=== PATIENT | male | born 2005 | race Caucasian/White ===

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

== ENCOUNTER 2025-06-07 18:51 | Inpatient (IN) | payer OTHER, SELFPAY ==
[2025-06-07] VITALS (39 sets, daily range): BP systolic 109–152; BP diastolic 53–99
[2025-06-07 16:42] LABS: Hematocrit 40.9 % (39.0-52.0); Hemoglobin 14.5 g/dL (13.0-18.0); Mean Corp Hgb Conc. 35.5 g/dL (33.0-37.0); Mean Corpuscular Volume 85.6 fL (80.0-94.0); Nucleated Red Blood Cells % 0 % (-); Platelet Count 189 10^3/uL (130-400); Red Cell Dist. Width 11.9 % (11.5-14.5)
[2025-06-07 16:45] LABS: Glucose - Point of Care 100 mg/dl (70-99)
--- NOTE | 2025-06-07 17:03 | ED.GENMED ---
History of Present Illness
General
Chief Complaint: Headache
Source: patient
Exam Limitations: none
Time Seen by Provider: 06/07/25 16:42
History of Present Illness
History of Present Illness:
Patient felt slightly off earlier today but about 3:00 while at work developed diffuse headache. Not thunderclap but relatively sudden onset. Diffuse. Not retrobulbar. Associate with nausea. When the patient got here he developed some weakness
to the right arm and felt like he was somewhat confused. Last migraine was 2 years ago. Has had migraines since he was 8 years old. This felt different.
Past History
Past History
ED Past Medical History: Other (Migraines)
ED Past Surgical History: None
Social History
Alcohol: None
Drug: Marijuana
Personal: Single
Living: with family
Review of Systems
Review of Systems
All Other Systems: Not applicable
Constitutional: Denies fever or chills
Respiratory: Reports no symptoms
Cardiac: Reports no symptoms
Phy Exam
Physical Exam
Physical Exam:
GENERAL: Alert and oriented in no apparent distress
EYE: Orbits normal.
NECK: Supple, no carotid bruit
ENT: Pharynx without erythema
CARDIAC: Regular rate and rhythm without any obvious murmurs.
LUNGS: Clear breath sounds,normal
ABDOMEN: Soft, without focal tenderness or distention
NEUROLOGICAL: Alert and oriented , although at times cognitively slightly off. Cranial nerves II through XII intact. No drift. Holding the right hand in a semigrip position. Decreased windows security analyst to the right hand. However proximal muscles are intact.
Decreased strength of both lower extremity with straight leg raising however slightly symmetrical. Light touch intact except for some decreased light touch to the right arm.
SKIN: Warm and dry, no rash or lesion, no discoloration, skin intact.
MUSCULOSKELETAL: No edema,no deformity.Good color
PSYCH: Normal and appropriate interaction.
Course
Orders/Labs/Results
Orders:
Orders
06/07/25 16:30
CT HEAD STROKE ALERT W/o Cont Urgent
Reason For Exam: VIZCARRA/Disorientation/numbness
06/07/25 16:35
Complete Blood Count/With Diff Urgent
Comprehensive Metabolic Panel Urgent
06/07/25 16:47
CT HEAD/NECK ANG STROKE ALERT Urgent
Comment:
Reason For Exam: Headache/right arm weakness right arm paresthesia
06/07/25 16:59
CT Brain Perfusion Urgent
Comment:
Reason For Exam: vizcarra right sided weakness
06/07/25 17:42
Ondansetron Injectable [Zofran] 4 mg .ROUTE .STK-MED ONE
Ondansetron Injectable [Zofran] 4 mg IV NOW STA
06/07/25 17:44
Tenecteplase [Tnkase] 18 mg Syringe [Syringe Non-Pump] 0 ml IV NOW
Provider explained risk/benefits to patient &/or caregiver?: Yes
Blood pressure: 131/72
06/07/25 18:35
Admit/Transfer Patient As Directed
Co-Sign Provider:
Level of Care: Inpatient admission
Assign to:: ICU
Physician / Group: Odilon Drake
Diagnosis: CVA, migraine
Reason for Hospitalization: CVA, migraine
Expected length of stay greater than two midnights?: Yes
ELOS- Estimated Length of Stay in days: 3
I certify the patient meets the requirements for IP care: Yes
PRN Pain Medication Management As Directed
May give lesser potent ordered pain med per pt: Yes
preference::
Protocol:: Medication orders for pain may be administered in a
manner that supports deferring to patient preference
when the pt is:
- Requesting an ordered lesser potent pain medication.
Least to most potent pain medications are defined
as: acetaminophen < NSAID < tramadol < opioids
(morphine, oxycodone, hydromorphone).
- Requesting a lesser dose of the same medication IF
ORDERED.
- Requesting a less intrusive route of administration
if both routes are prescribed by the provider (PO <
IV).
06/07/25 18:36
Code Status As Directed
Resuscitation Status: Full Code
06/07/25 19:24
Acetaminophen [Tylenol] 650 mg PO Q4HPRN PRN
06/07/25 19:24
Electrocardiogram (*1) Routine
Reason for Study: TIA/Stroke
Case Management Consult Once
Case Management Consult: Discharge Planning
DIETARY IP CONSULT Routine
Reason for Consult: stroke/TIA
Kiosk Sales Representative Consult Routine
Consulting Provider: Lewis Mackay
Was physician already notified: Yes
NEUROLOGY CONSULT Urgent
Consulting Provider: Felix Meadows
Was physician already notified: Yes
Director Employment Urgent
Urinalysis Routine
Comment: If not done in the ED
MR Brain Without Contrast Routine
Comment: complete 24 hrs post tenecteplase administration
Reason For Exam: possible stroke, status post tenecteplase
Recent pill cam endoscopy?: No
Hemetest Stools As Directed
Comment: hemoccult all stools if patient received tenecteplase
NIH Stroke Scale As Directed
Directions: Other
Comment: NIH stroke Scale to be completed prior to thrombolytic administration, then every 1 hour for 2
hours, then every shift and with change in condition and/or mental status.
Neurological Checks As Directed
Frequency: Per unit guidelines
Additional Instructions:: after start of thrombolytic therapy:
q15min x 2 hrs, q30min x 6 hrs, q1h x 16 hrs, q4h x 24 hrs, then every shift and
with any changes.
Notify MD As Directed
Notify physician if: - Any deterioration, change in neurological status, development of severe headache,
nausea and vomiting, or with any signs of bleeding. (see guidelines for suspected
intracerebral hemorrhage).
- If intracranial hemorrhage is suspected or confirmed by imaging, anticipate need for
osmotic diuretic to maintain euvolemia.
Notify MD As Directed
Notify physician if: Glucose less than 70 or greater than 180.
Anticipate corrective insulin orders.
Notify MD As Directed
Notify physician if: unable to obtain MRI of head within 22-32 hours of tenecteplase administration
- contact Neurology for order for CT of head without contrast
Patient Education As Directed
Type: Stroke education packet
Comment: provide to patient and family
Pneumatic Compression Sleeves As Directed
Type: Knee high
Precautions As Directed
Type of Precautions: Bleeding
Comment: post Bleeding Precaution sign at bedside (if patient received tenecteplase)
Thrombolytic Precautions As Directed
Thrombolytic Precautions:: Merkel bleeding precautions. Minimize invasive procedures and venipunctures,
avoid IM injections and over-handling patient, and check all puncture sites for
bleeding. Assess the patient and notify provider for signs and symptoms of
internal or serious bleeding, such as changes in vital signs or evidence of blood
in the urine or stool.
Additional instructions: Hemocult all stools.
Apply direct pressure or pressure dressing to any compressible puncture sites.
No ABG sampling or Davis insertion after Tenecteplase administration for 24 hours,
unless directed by the Neurologist/Attending.
Vital Signs As Directed
Frequency: q15m
Call for:: BP greater than 180/105 mmHg or less than 100/60 mmHg
Additional Instructions:: after start of thrombolytic therapy:
q15min x 2 hrs, q30min x 6 hrs, q1h x 16 hrs, q4h x 24 hrs, then every shift and
with any changes.
Ot Eval And Treat Routine
Physiatry Consult Routine
Consulting Provider: Endy Sullivan
Was physician already notified: Yes
Reason for consult: stroke/TIA
Pt Eval And Treat Routine
Activity Level: As Tolerated
Speech Therapy Eval & Treat Routine
DX Deep Vein Thrombosis Video Routine
06/07/25 20:43
Type+Screen Routine
Erythrocyte Sed Rate Routine
Comment: If not done in the ED
Glycohemoglobin (HgbA1c) Routine
Comment: If not done in the ED
Troponin I Routine
Comment: If not done in the ED
06/08/25 06:00
Basic Metabolic Panel IN AM
Cardiovascular Evaluation IN AM
Complete Blood Count/No Diff IN AM
PTT IN AM
Prothrombin Time IN AM
Abnormal Lab Results
06/07/25 06/07/25
16:35 16:44
MPV 12.0 H fL
(7.4-10.4)
Carbon Dioxide 21 L mmol/L
(22-30)
Albumin 5.3 H g/dl
(3.5-5.0)
POC Glucose 100 H mg/dl
(70-99)
06/07/25 16:35
06/07/25 16:35
Vital Signs
Initial and Last Documented VS:
Initial Vital Signs
Temp Pulse Resp BP Pulse Ox
98.5 F 63 18 135/69 97
06/07/25 16:27 06/07/25 16:27 06/07/25 16:27 06/07/25 16:27 06/07/25 16:27
Last Documented Vital Signs
Temp Pulse Resp BP Pulse Ox
98.1 F 43 10 117/65 96
06/07/25 19:09 06/07/25 21:30 06/07/25 21:25 06/07/25 21:30 06/07/25 21:30
MDM/Problems Addressed
Differential Diagnosis Includes:
Patient with headache followed by right arm weakness some dizziness and speech issues. History of migraine although feels different. Possible complex migraine versus CVA. Pain neurology was brought in as a stroke alert
*Radiology
Radiology exam reviewed: radiology read reviewed (Negative head CT. Congenital hypoplasia right vertebral artery)
*Pulse Oximetry
SaO2: 97
Oxygen Mode of Delivery: Room air
Patient hypoxic: no
*Audience Development Manager Interpretation
Rate: normal
Interpretation: normal
Heart Rate: 70
Rhythm: sinus
*Critical Care Note
Total Time (30-74mins, 75-104mins- exclusive of procedures): 45
Update Note
Update Note:
1700... Stroke alert was called. Discussed with [facility] neuro fellow. They asked for a perfusion scan also. Patient currently in CT. Father has been updated
3020... I was continuously in the room during the [facility] neurology evaluation. They recommended TNK. Patient and father are aware of the risk of bleed. They are aware that this can be life-threatening. No contraindication. No bleeding disorder no
recent trauma. No anticoagulants.
ED Attending Note
-
Portions of this chart may have been created with voice recognition software.� Occasional wrong word or��sound alike� substitutions may have occurred due to the inherent limitations of voice recognition software.
Discharge Plan
Departure
Patient Disposition: Admit
Date of Disposition: 06/07/25
Time of Disposition: 17:52
Presentation/result/management discussed w/ accepting MD/DO: Neurology
Discharge Problem:
CVA versus complex migraine
Interventions
Interventions:
*Risk Screen - Suicide Last Done: 06/07/25 21:44
*Neglect/Abuse Screening Last Done: 06/07/25 16:27
*Nursing Disposition Last Done: 06/07/25 19:23
ED- Neurological Assessment Last Done: 06/07/25 16:45
Discharge Date and Time
Discharge Date/Time: 06/07/25 19:23
[2025-06-07 17:07] LABS: ALT (SGPT) 16 U/L (0-50); AST (SGOT) 22 U/L (17-59); Albumin 5.3 g/dl (3.5-5.0); Alkaline Phosphatase 67 U/L (38-126); Blood Urea Nitrogen 12 mg/dl (9-20); Calcium 9.6 mg/dl (8.4-10.2); Carbon Dioxide 21 mmol/L (22-30); Chloride 105 mmol/L (98-107); Glucose 98 mg/dl (70-99); Potassium 4.1 mmol/L (3.5-5.1); Sodium 135 mmol/L (135-145); Total Protein 7.9 g/dl (6.3-8.2); eGFR > 60.00
[2025-06-07] MEDS: ZOFRAN 4 MG IV (17:43)
--- NOTE | 2025-06-07 17:49 | HPS.HSE ---
Family Physician
-
Family Physician:
Chief Complaint
-
migraine
History of Present Illness
Patient is a 19-year-old male with no significant medical history who presented to [facility] ED for evaluation of diffuse headache/migraine. Patient reports a mild headache this morning when he got to work that he reports had an acute episode of
intensity, he states pain was diffuse and if to say one area worse than another it would be his frontal lobe area. He reports feeling off balance with the right side being weaker than the left in the upper and lower extremity. He reports having
associated nausea, sensation loss in right upper and lower extremity and blurry vision. He reports sensation returned in lower extremity faster than upper extremity. Patient denies any recent illness, fever, chills, chest pain, palpitations,
dizziness, loss of control of bowel or bladder.
Medical History
Past Medical History
Past Medical History: Reports Other
Additional Past Medical History:
ADHD
migraines
Past Surgical History: Reports None
Social History
Tobacco: Vaping (2 year history )
Alcohol: None
Drug: Marijuana (daily use, smoke and edibles )
Living: With Family
Employment: Employed
Family History
Family History: Other (no significant family history )
Allergies / Home Medications
Allergies reflects when Allergies were last updated in [facility].
Home Medications with original date entered in [facility]
Allergy/Medication List:
Allergies
Allergy/AdvReac Type Severity Reaction Status Date / Time
No Known Allergies Allergy Verified 06/07/25 16:27
Home Medications
No Meds [No Current Medications] 05/15/24
Review of Systems
-
History Source: Patient
Abdomen/GI: Reports Nausea
Musculoskeletal: Reports Other (right-sided weakness, RUE loss of sensation )
Neurological: Reports Headache and Weakness (R>L)
Physical Exam
Vital Signs
Vital Signs
Temp Pulse Resp BP Pulse Ox
98.5 F 67 16 148/88 100
06/07/25 16:27 06/07/25 17:45 06/07/25 17:45 06/07/25 17:45 06/07/25 17:45
Physical Exam
General: Well Developed, Well Nourished and No Apparent Distress
HEENT: NormoCephalic, Moist mucous membranes, Atraumatic, Nose Appears Normal and Ears Appear Normal
Respiratory: Clear
Cardiac: S1/S2 and Regular Rhythm; No Murmur, Rub or Gallop
Breast: Deferred by me
GI: Soft, Non Tender, Non Distended and Normal Bowel Sounds; No Organomegaly
Rectal: Deferred by Provider
Musculoskeletal: No Clubbing, No Cyanosis and No Edema
Skin: No Rash
Neuro: Awake, AO x 3, Nonfocal/grossly intact and Cranial Nerves Intact (II-XII)
Psych: Calm
Laboratory Results
-
06/07/25 16:35
06/07/25 16:35
Laboratory Results
Total Bilirubin 1.0 mg/dl (0.2-1.3) 06/07/25 16:35
AST 22 U/L (17-59) 06/07/25 16:35
ALT 16 U/L (0-50) 06/07/25 16:35
Alkaline Phosphatase 67 U/L (38-126) 06/07/25 16:35
Data Reviewed
-
CT Scan: Report Reviewed by me (Head CT: No CT evidence for acute intracranial hemorrhage or transcortical infarct. ASPECT score: 10) and Other (Head/Neck CTA: NECK CTA: 1. 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
vertebral artery. 2. No CTA evidence for stenosis, occlusion, or dissection in the internal carotid arteries or left vertebral artery. 3. Mild enlargement of the adenoid and lingual tonsils. HEAD )
Lab Data: Labs Reviewed by me
Impression/Plan
-
IMPRESSION/PLAN:
#acute CVA verse migraine
Head CT: No CT evidence for acute intracranial hemorrhage or transcortical infarct.
Head/Neck CTA: NECK CTA:
1. 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
2. No CTA evidence for stenosis, occlusion, or dissection in the internal carotid arteries or left vertebral artery.
3. Mild enlargement of the adenoid and lingual tonsils.
HEAD CTA:
1. No CTA evidence for acute intracranial hemorrhage or transcortical infarct.
2. No CTA evidence for large vessel arterial stenosis or occlusion in the anterior circulation.
3. 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
4. Patent bilateral posterior communicating arteries.
Stroke alert called with [facility] who recommended TNK
TNK given in ED
- Admit to ICU
- Consult Neurology
- Consult Physiatry
- Consult Police Officer
#ADHD
#migraines
Code status: full code
DVT prophylaxis: SCDs
[2025-06-07] MEDS: TNKASE 3.6 MG IV (17:53)
--- NOTE | 2025-06-07 18:39 | W.PN.UPDATE ---
Update Note
Progress Note Update
This note serves as an addendum to the H&P by black pickler PAT
Dora Auguste
HPI
19M R hand dominant HX Migraine seen at ER s/p TNK
- felt slightly off earlier today but about 3:00 while at work developed diffuse headache.
- Not thunderclap but relatively sudden onset. Diffuse. Not retrobulbar.
- Associate with nausea.
- developed some weakness to the right arm and felt like he was somewhat confused.
- Last migraine was 2 years ago. Has had migraines since he was 8 years old.
Relevant VS
Vital Signs
Temp Pulse Resp BP Pulse Ox
98.5 F 42 9 116/85 99
06/07/25 16:27 06/07/25 18:25 06/07/25 18:25 06/07/25 18:25 06/07/25 18:00
PE
Gen: NAD
HEENT: symmetric face
Neck: supple
Lungs: CTA
Cor: RRR S1 S2
Abdomen: soft abdomen
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
MS: no edema
Relevant Data
Abnormal Lab
06/07/25 06/07/25
16:35 16:44
MPV 12.0 H
Carbon Dioxide 21 L
Albumin 5.3 H
POC Glucose 100 H
H & N CTA
NECK CTA:
1. 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
2. No CTA evidence for stenosis, occlusion, or dissection in the internal carotid arteries or left vertebral artery.
3. Mild enlargement of the adenoid and lingual tonsils.
HEAD CTA:
1. No CTA evidence for acute intracranial hemorrhage or transcortical infarct.
2. No CTA evidence for large vessel arterial stenosis or occlusion in the anterior circulation.
3. 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
4. Patent bilateral posterior communicating arteries.
Last hospitalist admission:
ASSESSMENT & PLAN
Pending Rx reconciliation
Acute CVA vs Complex migraine
@ 1700... Stroke alert was called. ER attd siscussed with [facility] fellow asked for a perfusion scan also.
@ 1745... I was continuously in the room during the [facility] evaluation.
- [facility] recommended TNK
- Per ER attd - Patient and father are aware of the risk of bleed. They are aware that this can be life-threatening.
- No contraindication. No bleeding disorder no recent trauma. No anticoagulants.
- admit to ICU per post TNK protocol
- No APL
- Brain MRI in 24 Hrs s/p TNK
DVT Px: contraindicated s/p TNK
Full code
ICU
Total Critical Care Time_45____ minutes. I was immediately available to the patient and staff. I personally examined, reviewed labs, diagnostic images/reports, interpretations, treatment plans, discussed patient care with other providers and
family or caregivers (if patient is unable to make decisions), entered orders as appropriate and documented the medical record.
[2025-06-07 20:08] LABS: Glucose - Point of Care 99 mg/dl (70-99)
[2025-06-07 21:06] LABS: APTT 27.9 Sec (23.4-35.0); INR 1.11; PT 14.6 Sec (11.4-14.6)
[2025-06-07 21:07] LABS: Magnesium 2.2 mg/dl (1.6-2.3)
[2025-06-07 21:19] LABS: Troponin I < 0.012 ng/ml
--- NOTE | 2025-06-07 22:32 | PTCARENOTE ---
Pt received from ED to ICU room 3358 approx 19:10. Ambulated, steady gait. Pt Ox3, NIH = 0. Weakness remains present in L hand grasp, which is slightly improved at this time. Pt c/o mild pain/stiffness to R hand, R hand xray ordered and obtained.
Sinus alex high 30s-low 40s. Palpable pulses, no edema. RA, breath sounds clear, pulse ox 97%. +bowel sounds, no BM. Prior RN ambulated pt to the bathroom upon arrival, pt voided--unobserved--per pt yellow urine. Safe environment maintained, call
sandhu within reach, pt repositioning self.
[2025-06-08] VITALS (38 sets, daily range): BP systolic 98–138; BP diastolic 56–81; BMI 22.4
[2025-06-08 03:33] LABS: Hematocrit 39.4 % (39.0-52.0); Hemoglobin 13.8 g/dL (13.0-18.0); Mean Corp Hgb Conc. 35.0 g/dL (33.0-37.0); Mean Corpuscular Volume 87.4 fL (80.0-94.0); Platelet Count 162 10^3/uL (130-400); Red Cell Dist. Width 11.9 % (11.5-14.5)
[2025-06-08 03:38] LABS: INR 1.11; PT 14.6 Sec (11.4-14.6)
[2025-06-08 03:39] LABS: APTT 27.8 Sec (23.4-35.0)
[2025-06-08 04:12] LABS: Blood Urea Nitrogen 10 mg/dl (9-20); Calcium 9.3 mg/dl (8.4-10.2); Carbon Dioxide 24 mmol/L (22-30); Chloride 106 mmol/L (98-107); Estimated Creatinine Clearance > 125 ml/min; Glucose 80 mg/dl (70-99); HDL Cholesterol 45 mg/dl; LDL Cholesterol, Calculated 95 mg/dl; Potassium 4.0 mmol/L (3.5-5.1); Sodium 137 mmol/L (135-145); Very Low Density Lipoprotein 11 mg/dl (0-30); eGFR > 60.00
--- NOTE | 2025-06-08 04:40 | PTCARENOTE ---
Pt assessment unchanged. Pt states that R hand pain and stiffness has improved. Safe environment maintained, call sandhu within reach.
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
--- NOTE | 2025-06-08 08:03 | PTCARENOTE ---
Received patient from soap drier tender. patient is AAOx3, sinus alex on monitor and on room air, assessment is benign except for patient complains that he can not grasp strongly with his right thumb and index finger. Denies complaints of pain, has
intermittent pressure in his head if he coughs strongly. awaiting orders for regular diet. patient was ambulating to the rest room. will review orders, call sandhu in reach.
--- NOTE | 2025-06-08 08:19 | CON.NEURO4 ---
Addendum entered and electronically signed by Felix Meadows MD 06/08/25 12:25:
Studies reviewed.
I have personally examined the patient. I reviewed and agree with the [employer]'s Note.
My addenda:
Awake, alert, interactive. No acute distress.
Speech intact.
Follows 2-step requests w/o difficulty. No tremor.
Extra-ocular movements grossly intact.
Facial movements full and symmetric. Hearing intact to normal conversational volume.
Normal UE movements bilaterally.
Neck: full ROM.
Chest: no dyspnea
Heart: no JVD
Ext: (-) Clubbing, (-) Cyanosis, (-) Edema
IMPRESSIONS/RECOMMENDATIONS:
Abrupt onset of right upper extremity sensory change and headache with a prior history of migraine.
In light of unremarkable CT of the head, CT perfusion, and CTA, it is least likely that the patient is experienced a stroke and more likely the patient is experienced migraine with aura. Patient received tenecteplase.
no indication for aspirin
Prochlorperazine PRN for headache
No indication for routine headache medication
check blood work for causes for insomnia, may require outpatient cognitive behavioral therapy
will follow MRI of brain results
D/W patient
Will continue to follow pending results and as outpatient.
Original Note:
Documented by User: Clemencia Aguila NP 06/08/25 11:22
Consultation - Neurology 4
-
CONSULTING PHYSICIAN: Felix Meadows MD
REFERRING PHYSICIAN: Hospitalists/ANN-MARIE Stokes
DICTATED BY: ANN-MARIE Collazo
DATE/TIME OF REQUEST: 06/07/25
DATE/TIME OF CONSULTATION: 06/08/25
Reason for Consultation: Headache
History of Present Illness:
This is a 19-year-old right-handed male who has presented to the hospital with report of headache and right upper extremity numbness and weakness. Patient reports that two nights ago on 06/06/25 he went to bed around 2100 because he was exhausted
from waking up early for court. Then yesterday (06/07/25) he woke up around 0630 with a mild migraine but it seemed to resolve after a couple of hours. As he was working at 1455, the headache returned and was severe. He describes it as an intense
pressure on the left side of his head that then moved to the right side and back again to the left side. His vision appeared 'grainy' on the right side of his right eye vision only, this resolved after about 15 minutes. He took two Excedrin and his
headache seemed to worsen. He vomited twice and his boss decided to send him to the ER for evaluation. On arrival in the ER, he reports that both of his legs felt weak, walking was difficult. His right arm felt weak and numb. NIHSS was a 3 for RUE
limb ataxia, mild RUE sensation loss, and RUE sensory inattention. Per consultation with TeleStroke by ER physician, TNK was given per protocol. This morning (06/08/25), he reports that he has started coughing, which triggers a left frontal head pain.
When he is not coughing, his symptoms have resolved. He denies any dizziness, vision changes, speech/swallow difficulty, numbness, and weakness.
He reports a history of severe migraines starting at age 8, but they completely resolved around age 14. Those headaches were associated with phonophobia and nausea. He notes that over the past two years he has had some mild headaches associated
with looking at computer screens for long periods that he describes as an eye strain sensation, but he has never had symptoms similar to this.
Past Medical History: Migraine with aura, ADHD, insomnia
Surgical History: Denies.
Family History: Older sister with possible migraines.
Social History: Vapes nicotine and marijuana use daily.
Allergies: No known allergies.
Home Medications: See below.
Review of Symptoms:
Patient denies any fever, chest pain, shortness of breath, GI or symptoms.
�Per the HPI.�All systems are reviewed negative except above.
Physical Exam:
The patient is afebrile, abdomen is nondistended, breathing is unlabored, skin is warm and dry, no edema.
NIH Stroke Scale:
I performed the NIH stroke scale on the patient on 06/08/25 at 0920. The patient scored 0 points on the NIH stroke scale assessment, which were assigned as follows: See below.
Neurologic Examination:
The patient is awake, alert and oriented x 3. He is able to follow commands and answer questions appropriately. There is no aphasia or dysarthria. On cranial nerve assessment, pupils are 3 mm bilateral, round and reactive to light and
accommodation. Visual savage are full. Extraocular movements are intact. Facial sensations are intact and bilaterally symmetrical, there is no facial asymmetry. Hearing is intact bilaterally to normal conversation volume. Tongue palate and uvula are
midline. Sternocleidomastoid strengths are full bilaterally. Motor strengths are 5/5 bilateral upper and lower extremities on medical research [place] scale. There is no drift or involuntary movement noted. Deep tendon reflexes are 2+ bilateral
upper and lower extremities and Babinski is absent bilaterally. There was no extinction noted on double simultaneous stimulation. Coordination is intact by finger to nose bilaterally.
Lab Results: See below.
Neuro Imaging:
1. CT Head 06/07/25: No CT evidence for acute intracranial hemorrhage or transcortical infarct. ASPECT score: 10.
2. 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 No CTA evidence for stenosis, occlusion, or dissection in the internal carotid arteries or left vertebral artery. Mild enlargement of the
adenoid and lingual tonsils. HEAD CTA: No CTA evidence for acute intracranial hemorrhage or transcortical infarct. No CTA evidence for large vessel arterial stenosis or occlusion in the anterior circulation. Severe hypoplasia of the right
intracranial vertebral artery. Patent bilateral posterior communicating arteries.
3. CT Perfusion 06/07/25: CBF 0.
Differentials for the patient's presentation include:
1. Migraine with aura likely producing symptomatology.
2. Very low concern for TIA or stroke producing symptoms.
Patient has the following risk factors for their symptoms: History of migraine with aura, insomnia
IV Tenecteplase/IAT candidacy: Patient was a candidate for TNK, administered per protocol. Not a candidate for IAT due to no LVO on imaging.
Recommendations:
� TNK was administered in the ER
� place the patient in medical ICU
� goal blood pressure over the next 24 hours would be less than 180/105 mmHg
� check MRI of the brain within 22-32 hours of TNK without contrast for localization of the stroke
� hold all antiplatelets, OAC meds, DOAC meds, heparinoids for next 24 hours
� check lipid panel and hemoglobin A1c
� goal blood glucose levels for patient would be less than 180 mg/dL
� Speech, PT, OT evaluations needed
� DVT prophylaxis with sequential compression devices over next 24 hours, can be started on Enoxaparin subcutaneous for DVT prophylaxis beginning 24 hours after TNK provision.
� medical educational materials will be provided
� check an echocardiogram
� Would start prochlorperazine 10mg PO as needed at migraine onset for outpatient usage.
Aim for 8 hours of sleep per night. Does not drink caffeine.
Discussed patient care with: Dr. Meadows, the patient
Vital Signs and Labs
-
Vital Signs and Labs:
Vital Signs
Temp Pulse Resp BP Pulse Ox
98.4 F 37 18 119/63 96
06/08/25 07:30 06/08/25 07:30 06/08/25 06:55 06/08/25 07:05 06/08/25 07:40
Lab Results
06/08/25 03:15
06/08/25 03:15
PT 14.6 Sec (11.4-14.6) 06/08/25 03:15
INR 1.11 06/08/25 03:15
APTT 27.8 Sec (23.4-35.0) 06/08/25 03:15
Sodium 137 mmol/L (135-145) 06/08/25 03:15
Potassium 4.0 mmol/L (3.5-5.1) 06/08/25 03:15
BUN 10 mg/dl (9-20) 06/08/25 03:15
Glucose 80 mg/dl (70-99) 06/08/25 03:15
Calcium 9.3 mg/dl (8.4-10.2) 06/08/25 03:15
Phosphorus 4.4 mg/dl (2.5-4.5) 06/07/25 20:43
LDL Cholesterol, Calc 95 mg/dl 06/08/25 03:15
Medications
-
Active Medications
Generic Name Dose Route Start Last Admin
Trade Name Freq PRN Reason Stop Dose Admin
Acetaminophen 650 mg 06/07/25 19:24
Acetaminophen 325 Mg Tablet PO 07/05/25 19:23
Q4HPRN PRN
VIZCARRA, mild pain, or temp >100.4F
Sodium Chloride 0 flush 06/07/25 20:00
Sodium Chloride 0.9% (Flush) Syringe IV 07/05/25 19:59
PER PROTOCOL MILAD
Home Medications
�Medication �Instructions �Recorded
No Meds [No Current Medications] 05/15/24
NIH Stroke Score
Subsequent NIH Scale
Date of Subsequent NIH Scale: 06/08/25
Time of Subsequent NIH Scale: 09:20
NIH Stroke Score
Level of Consciousness: 0 - Alert
LOC Questions: 0-Answers both correctly
LOC Commands: 0-Performs both correctly
Best Horizontal Gaze: 0-Normal
Visual Savage: 0=Normal, no visual loss
Facial Palsy: 0=Normal, symmetrical
Motor - Right Arm: 0=No drift 10 seconds
Motor - Left Arm: 0=No drift 10 seconds
Motor - Right Le-No drift 5 seconds
Motor - Left Le-No drift 5 seconds
Limb Ataxia: 0-Absent
Sensation: 0-Normal
Best Language: 0-No aphasia
Dysarthria: 0-Normal
Extinction and Inattention: 0-No abnormality
NIH Total Score:: 0
Modified Newton (mRS) Score
Modified Dieter Scale (mRS): No symptoms
Score: 0
Alteplase Contraindication
Inclusion and Exclusion criteria reviewed: Yes

Documented by User: Felix Meadows MD 06/08/25 11:45
NIH Stroke Score
NIH Stroke Score
NIH Total Score:: 0
Modified Newton (mRS) Score
Score: 0
[2025-06-08 09:06] LABS: Glycohemoglobin (HgbA1c) 5.1 % (4.0-5.6)
--- NOTE | 2025-06-08 11:02 | PTCARENOTE ---
no change in patient's assessment lights are off in room and patient is texting on his cell phone. when offered to help order a meal patient states that he 'can not eat without smoking his medicinal marijuana' I offered clear liquid diet, denied
at this time. Ongoing neurological assessments WNL.
--- NOTE | 2025-06-08 11:46 | CM ---
Initial assessment completed with patient who lives with his parents, aunt and 17 y/o sister in a 2 story plus basement home with B/B on 2nd and 1/2 bath on 1st and 15 steps to enter the home. [employer] patient was independent in ADL's and ambulation,
drives, works. No DME or in-home services. PCP is Dr. Arthur Norris and [facility]acy is [facility] in [place]. Discharge POC: Home with no needs.
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
--- NOTE | 2025-06-08 14:51 | PTCARENOTE ---
Echo being done at bedside. no changes in assessment. MRI scheduled tentatively for 1699.
--- NOTE | 2025-06-08 18:29 | PTCARENOTE ---
Took patient to MRI, awaiting results. cardiology consult per Echo read. no further orders, patient's father at bedside, updated on plan of care.
--- NOTE | 2025-06-08 20:30 | PTCARENOTE ---
Addendum entered by Rachel Morales RN 06/09/25 05:03:
Cannot verify vitals prior to 1900.
Original Note:
Received patient AAOx3, denying pain, following commands, family at bedside. Blood cultures and urinalysis sent. NIH 0. SB 30s-50s, BP stable. normothermic, no edema. 97% on room air, lung sounds clear throughout. Positive bowel sounds, voids in
bathroom. Skin intact, PIVs patent, WNL. Call sandhu within reach.
[2025-06-08 20:51] LABS: Urine Character Clear (Clear)
[2025-06-09] VITALS (11 sets, daily range): BP systolic 108–124; BP diastolic 56–76; BMI 22.1
--- NOTE | 2025-06-09 00:47 | PTCARENOTE ---
Patient assessment unchanged from previous, call sandhu within reach.
[2025-06-09 04:35] LABS: Hematocrit 41.5 % (39.0-52.0); Hemoglobin 15.0 g/dL (13.0-18.0); Mean Corp Hgb Conc. 36.1 g/dL (33.0-37.0); Mean Corpuscular Volume 86.5 fL (80.0-94.0); Platelet Count 166 10^3/uL (130-400); Red Cell Dist. Width 11.8 % (11.5-14.5)
[2025-06-09 05:00] LABS: Blood Urea Nitrogen 12 mg/dl (9-20); Calcium 9.6 mg/dl (8.4-10.2); Carbon Dioxide 23 mmol/L (22-30); Chloride 106 mmol/L (98-107); Estimated Creatinine Clearance > 125 ml/min; Glucose 86 mg/dl (70-99); Potassium 4.4 mmol/L (3.5-5.1); Sodium 138 mmol/L (135-145); eGFR > 60.00
--- NOTE | 2025-06-09 07:24 | W.PN.NEURO.1 ---
Today's Communication / Plan
-
.
Neuro Assessment/Plan
Assessment
IMPRESSIONS/RECOMMENDATIONS:
Abrupt onset of right upper extremity sensory change and headache with a prior history of migraine.
In light of unremarkable CT of the head, CT perfusion, and CTA, and MRI of brain, it is least likely that the patient is experienced a stroke and more likely the patient is experienced migraine with aura. Patient received tenecteplase.
Plan
no indication for aspirin
Prochlorperazine PRN for headache
No indication for routine headache medication
check blood work for causes for insomnia, may require outpatient cognitive behavioral therapy
Subjective/Objective
Subjective Data
Date of Service: June 09, 2025
Objective Data
Vital Signs
Temp Pulse Resp BP Pulse Ox
36.4 C 39 18 115/67 99
06/09/25 03:44 06/09/25 06:00 06/08/25 06:55 06/09/25 06:00 06/09/25 06:00
Lab Results
06/09/25 04:21
06/09/25 04:21
PT 14.6 Sec (11.4-14.6) 06/08/25 03:15
INR 1.11 06/08/25 03:15
APTT 27.8 Sec (23.4-35.0) 06/08/25 03:15
Sodium 138 mmol/L (135-145) 06/09/25 04:21
Potassium 4.4 mmol/L (3.5-5.1) 06/09/25 04:21
BUN 12 mg/dl (9-20) 06/09/25 04:21
Glucose 86 mg/dl (70-99) 06/09/25 04:21
Calcium 9.6 mg/dl (8.4-10.2) 06/09/25 04:21
Phosphorus 4.4 mg/dl (2.5-4.5) 06/07/25 20:43
LDL Cholesterol, Calc 95 mg/dl 06/08/25 03:15
Patient Allergies
No Known Allergies Allergy (Verified 06/07/25 16:27)
Data Reviewed
-
MRI Head: Report Reviewed
Labs: Report Reviewed
Reviewed with: Nurse Practioner
Old Records: Summarized
Past History
Past History
ED Past Medical History: Other (Migraines)
ED Past Surgical History: None
Social History
Alcohol: None
Drug: Marijuana
Personal: Single
Living: with family
Medications
-
Medications:
Generic Name Dose Route Start Last Admin
Trade Name Freq PRN Reason Stop Dose Admin
Acetaminophen 650 mg 06/07/25 19:24
Acetaminophen 325 Mg Tablet PO 07/05/25 19:23
Q4HPRN PRN
VIZCARRA, mild pain, or temp >100.4F
Sodium Chloride 0 flush 06/07/25 20:00
Sodium Chloride 0.9% (Flush) Syringe IV 07/05/25 19:59
PER PROTOCOL MILAD
--- NOTE | 2025-06-09 07:50 | W.PN.HOSP.TC ---
Today's Communication/Plan
-
Prochlorperazine as needed for headache
Possible differential includes Hemiplegic Migraine -this differential becomes more likely after most recent MRI did not show any evidence for acute infarct or intracranial hemorrhage.
Follow-up DANIELLE scheduled for today after mobile linear echodensity seen on ventricular side of aortic valve during transthoracic echo -blood cultures ordered as well
Assessment / Plan
Assessment / Plan
HPI: Patient is a 19-year-old male who presented to the emergency department after suffering from a severe headache at around 3 in the afternoon while at work. It was not a thunderclap type of headache but had a relatively sudden onset. Pain was
diffuse throughout the head but is most focused in the frontal lobe area. Pain was associated with nausea. By the time the patient reached the emergency department there was some weakness in the right arm and he felt somewhat confused. He also
stated that he had some balance issues with his right side being weaker than the left in the upper and lower extremity. He had sensation loss in the right upper and lower extremity with blurry vision. Sensation returned in his lower extremity
faster than in the upper extremity. His last migraine was around 2 years ago. He has had migraines since he was 8 years old and the episode that led to his presentation to the emergency department was different than any of his other prior
headaches. Stroke alert was called. Bookkeeper, neurology, and physiatry were consulted. [facility] recommended TNK. CT of the head was conducted in the emergency department which was unremarkable with an aspect score of 10 indicating no
visible ischemic changes. Patient received TNK in the emergency department. 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 Brain CT was unremarkable. . patient was admitted to the ICU for
neurological deficits
Assessment and plan:
- TIA versus hemiplegic migraine: Unresolved�monitoring
History of multiple concussions as a child�last at age 14
History of head trauma and jaw trauma in 2023 based on prior ED records
[facility] recommended TNK -given in the emergency department
Patient admitted to the ICU post TNK protocol
Brain MRI within 24 hours status post TNK
Monitoring for signs of neurologic deterioration
Maintain BP less than 180/105
No aspirin or other thrombotics or heparin
IV fluid support
Appreciate neurology recommendations�they believe that there is no indication for aspirin. They recommend prochlorperazine as needed for headache. They do not believe that there is an indication for routine headache medication. Patient may need
blood work for causes of insomnia and may require outpatient cognitive behavioral therapy.
Appreciate psychiatry recommendations�they are not under the impression that this patient requires any type of psychotropic meds at the time. Psychiatry answered many questions about his current marijuana and vaporizer usage.
Possible differential includes hemiplegic migraine -this differential becomes more likely after most recent MRI did not show any evidence for acute infarct or intracranial hemorrhage.
Follow-up DANIELLE ordered after mobile linear echodensity seen on ventricular side of aortic valve during transthoracic echo -blood cultures ordered as well
- Sinus bradycardia:
Heart rate in the upper 50s to lower 60s during physical examination the morning of 06/08/2025
Patient currently asymptomatic�will continue to monitor
-Cannabis use:
Patient does daily vaping and uses medical marijuana for insomnia
- ADHD: Stable
- Migraines: Monitoring/stable
DVT prophylaxis: SCDs
FULL CODE STATUS
Imaging:
- Chest x-ray conducted on 06/07/2025:
No radiographic evidence for cardiopulmonary disease.
- Head CT conducted on 06/07/2025:
No CT evidence for acute intracranial hemorrhage or transcortical infarct.
ASPECT score: 10
- Head/neck CT angio conducted on 06/07/2025:
NECK CTA:
1. 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
2. No CTA evidence for stenosis, occlusion, or dissection in the internal carotid arteries or left vertebral artery.
3. Mild enlargement of the adenoid and lingual tonsils.
HEAD CTA:
1. No CTA evidence for acute intracranial hemorrhage or transcortical infarct.
2. No CTA evidence for large vessel arterial stenosis or occlusion in the anterior circulation.
3. 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
4. Patent bilateral posterior communicating arteries.
- Brain CT conducted on 06/07/2025:
CBF <30% Volume: 0 mL (estimate of ischemic core)
Tmax >6 second Volume: 0 mL (critically hypoperfused tissue)
CBF/Tmax Mismatch Volume: 0 mL (ischemic penumbra)
CBF/Tmax Mismatch Ratio: None
Hypoperfusion Index (Tmax >10s/Tmax >6s): N/A (predicts rate of collateral flow, infarct growth, and clinical outcome)
CBV Index (rCBV in Tmax >6s): -
CBF <20% Volume: 0 mL (for patient's who arrived to the hospital within 60 minutes of symptom onset)
- Hand x-ray conducted on 06/07/2025:
No radiographic evidence for acute fracture or arthritis in the right hand.
- Echocardiogram conducted on 06/08/2025:
Left Ventricle: Normal left ventricular size, wall thickness and systolic function. No regional wall motion abnormalities are seen. LV ejection fraction is 55-60% by visual assessment. Normal diastolic function.
Right Ventricle: Normal right ventricular size and function.
Left Atrium: Mildly dilated left atrium.
Right Atrium: Normal right atrium.
Mitral Valve: Mitral valve opens normally. Trace mitral regurgitation.
Aortic Valve: Trileaflet aortic valve. Aortic valve opens normally. No aortic regurgitation is seen. Mobile linear echodensity seen on the ventricular side of aortic valve.
Tricuspid Valve: Tricuspid valve opens normally. Trace tricuspid regurgitation. Estimated pulmonary artery pressure of 28 mmHg. Assuming a right atrial pressure of 3 mmHg.
Pulmonic Valve: Pulmonic valve opens normally. Trace pulmonic regurgitation.
Pericardium\\Pleura: Normal pericardium without effusion.
Aorta: Normal aortic root.
Other Findings: The IVC is of normal size and demonstrates normal respiratory variation. Interatrial septum is intact with no evidence of shunting by color flow Doppler.
- Brain MRI conducted on 06/08/2025:
1. No MRI evidence for acute infarct or intracranial hemorrhage.
2. 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
3. Mild enlargement of the adenoid and palatine tonsils.
Anticipated Discharge: 24 - 48 hours
Subjective/Interval History
-
Date of Service: June 09, 2025
Met with patient at the bedside. He is in a calm and pleasant mood and participates in discussion. Has a normal affect and makes eye contact. Patient is curious about the results of his transthoracic echocardiogram and education in regards to his
heart valves were provided at the bedside. He inquired about why his valves appeared to open and close rapidly while he was watching the echocardiogram being conducted. I explained that this is often a normal finding and echocardiogram and that we
seek to do a transesophageal echocardiogram to to further investigate the aortic valve based on the prior echocardiogram. He does not report any headache symptoms at the present time. He had the lights on in his room which was a change from
yesterday.
Objective Data
-
Labs:
Laboratory Results
06/09/25
04:21
WBC 5.1
Hgb 15.0
Hct 41.5
Plt Count 166
Sodium 138
Potassium 4.4
Chloride 106
Carbon Dioxide 23
BUN 12
Creatinine 0.7
Glucose 86
Calcium 9.6
Vital Signs:
Vital Signs
Temp Pulse Resp BP Pulse Ox
97.6 F 38 18 120/76 98
06/09/25 03:44 06/09/25 07:00 06/08/25 06:55 06/09/25 07:00 06/09/25 07:30
I&O
06/08/25 06/09/25 06/10/25
06:59 06:59 06:59
Intake Total 900 / 900
Balance 900 / 900
Review of Systems
-
History Source: Patient
All other systems: Reviewed and negative
Constitutional: Reports No Symptoms
EENT: Reports No Symptoms Reported
Respiratory: Reports No Symptoms
Cardiac: Reports No Symptoms
Abdomen/GI: Reports No Symptoms
Breast: Reports No Symptoms
Genitourinary: Reports No Symptoms
Musculoskeletal: Reports No Symptoms
Skin: Reports No Symptoms
Neuro: Reports No Symptoms
Endocrine: Reports No Symptoms
Physical Exam
-
General: Well Developed, Well Nourished and No Apparent Distress
HEENT: Normocephalic, Atraumatic and Moist Mucous Membranes
Respiratory: Clear to Auscultation; Negative Wheezes, Rales, Rhonchi or Crackles
Cardiac: S1/S2 and Bradycardic
GI: Soft, Nontender, Nondistended and Normal Bowel Sounds
Musculoskeletal: No Clubbing, No Cyanosis and No Edema
Neuro: Awake, Alert, Oriented and AO x 3
Psych: Calm
--- NOTE | 2025-06-09 07:50 | W.PN.INTV ---
Today's Communication / Plan
Recommendations
Encourage ambulation
Await further input from cardiology
Recommend outpatient follow-up in sleep clinic. Information left in chart
Patient transferred to telemetry. We will sign off. Please call with questions
Assessment
-
19-year-old male with history of migraines presents with questionable migraine versus acute CVA. Imaging negative. Patient was given TNK in the ED per recommendation from [facility]
Admitted to ICU for further management
Acute headaches
Migraine versus CVA
No other aura, transient nausea noted
History of migraines as a child, none for 2 years
Right arm numbness/weakness
s/p TNK 06/08
History of multiple concussions as a child, last age 14
Sinus bradycardia
History of head trauma, jaw trauma 2023 (see ED records)
Daily vaping
Daily medical marijuana for insomnia
Bruxism, excessive daytime sleepiness
Weight fluctuation
Unintentional weight loss (weight 200 down to 130 according to patient)
Stable over the last 6 months
Plan/recommendations
At this time, patient appears to be comfortable. He states he feels much better since admission, headaches have resolved
Brain MRI 06/08 unremarkable for acute findings
Normal EF, questionable density involving aortic valve
Bradycardia noted
Moving forward
Continue with management per primary service
Would consider outpatient sleep evaluation. Information left in chart
May benefit from outpatient sleep evaluation given parasomnias, insomnia, bruxism, migraines
Cardiology following, DANIELLE is being considered
Encourage ambulation
For transfer out of ICU. We will sign off. Please call with questions
Subjective Dataa
Subjective Data
Date of Service:
Date of Service: June 09, 2025
Subjective:
Patient feels improved overall, had 1 transient headache, now resolved. Describes occasional lightheadedness, but has not been active, relatively sedentary. Denies shortness of breath, chest pain. Has some mild abdominal discomfort. Has not
moved bowels
Objective Data
Data Reviewed
Vital Signs / I&O / Oxygen:
Vital Signs
Temp Pulse Resp BP Pulse Ox
97.6 F 38 18 120/76 98
06/09/25 03:44 06/09/25 07:00 06/08/25 06:55 06/09/25 07:00 06/09/25 07:30
Intake and Output
06/08/25 06/09/25 06/10/25
06:59 06:59 06:59
Intake Total 900 / 900
Balance 900 / 900
SaO2 98
Physical Exam
General: Comfortable
HEENT: Normocephalic and Anicteric
Cardiovascular: S1-S2, Regular Rhythm, Murmur (n) and Rub (n)
Respiratory: Wheeze (n), Crackles (n), Rhonchi (n) and Non-Labored Respirations
GI: Soft, Non Distended and Non Tender
Neurology: Awake, Alert and No Motor Deficits
Skin: Cyanosis (n) and Jaundice (n)
Labs/Micro/Reports
Lab Data
06/09/25 04:21
06/09/25 04:21
--- NOTE | 2025-06-09 08:00 | PTCARENOTE ---
Spoke with associate financial planner. patient is written for telemetry. awaiting time for DANIELLE, patient NPO, neuro checks unchanged. has some residual intermittent numbness/weakness of right thumb and index finger.
--- NOTE | 2025-06-09 08:17 | CON.CAR ---
Addendum entered and electronically signed by Max Barraza DO 06/09/25 16:04:
I saw and examined the patient.
The Hydropulper's note was reviewed and I agree with the note.
Comment:
Plan:
Patient presented with migraine headache, however with symptoms also concerning for acute stroke. Stroke alert was called and patient received TNK in ER on 06/07.
Neuro work-up including CT head and MRI negative.
DANIELLE recommended to rule out PFO and further evaluate nonspecific finding on aortic valve which may represent artifact versus Lambl's excrescences, a benign finding.
EKG was sinus bradycardia with early repolarization. No acute ischemic changes.
Further recommendations based on DANIELLE findings.
Original Note:
Consultation
Consultation Request
Date/Time Consultation Performed: 06/09/25
Requesting Provider: Dr. Medel
Performing Provider: Viviana Calero PA-C for Dr. Barraza
Reason for Consultation: abnormal echo, eval for DANIELLE
Medical History
-
Chief Complaint: migraine
History of Present Illness:
Patient is a 19-year-old male with past medical history of insomnia who presented to [facility] due to a migraine headache. He reports as a child he got migraines frequently, however then they decreased around age 14-15. He states yesterday he woke up
with what he felt was a migraine. It resolved on its own. He then went to work and states around 3 PM his headache came back and got progressively worse. He reports his boss gave him Excedrin which did not help at all. He then states he came to
the ER and reports his memory of that time is a little fuzzy. He states he remembers vomiting, and recalls having some slurred speech, difficulty walking, and right arm numbness and tingling. A stroke alert was called and after discussion with
[facility], was given TNK. Head CT was negative. Echocardiogram showed normal pumping function with mobile linear echodensity on ventricular side of aortic valve therefore cardiology consulted for evaluation for DANIELLE. He feels his symptoms are
almost completely resolved, aside from some mild residual weakness in his right upper extremity. He does use marijuana but denies other drug use.
PMH:
History of migraines
Insomnia
Marijuana use
Past Medical History
Past Medical History: Other (in HPI)
Social History
Tobacco: Non-Smoker
Drug: Marijuana
Personal: Single
Employment: Employed (cargo services coordinator)
Family History
Family History: Reviewed & Not Pertinent
Allergies / Home Medications
Allergy/AdvReac Type Severity Reaction Status Date / Time
No Known Allergies Allergy Verified 06/07/25 16:27
�Medication �Instructions �Recorded �Confirmed �Type
No Meds [No Current Medications] 05/15/24 06/07/25 History
Review of Systems
-
History Source: Patient
All other systems: Negative unless noted
Physical Exam
Vital Signs
Temp Pulse Resp BP Pulse Ox
97.8 F 38 18 120/76 98
06/09/25 08:03 06/09/25 07:00 06/08/25 06:55 06/09/25 07:00 06/09/25 07:30
Lab Results
06/09/25 04:21
06/09/25 04:21
Troponin I < 0.012 ng/ml 06/07/25 20:43
Physical Exam
General: No Apparent Distress and Comfortable
HEENT: Normocephalic, Anicteric and Moist Mucous Membranes
Respiratory: Clear and Non Labored Respirations
Cardiac: S1/S2, Regular Rhythm and Other (bradycardic)
Musculoskeletal: No Clubbing, No Cyanosis and No Edema
Skin: Warm and Dry
Neuro: AO x 3
Impression / Plan
-
Primary Flooring Installer: none prior to admission
Assessment:
Presentation with headache
Complex migraine vs CVA
Abnormal echo with mobile linear echodensity on ventricular side of aortic valve
History of migraines
Insomnia
Marijuana use
ECHO 06/08/25: EF 55 to 60%, no regional wall motion abnormalities noted, no aortic regurgitation, mobile linear echodensity seen on ventricular side of aortic valve of unknown etiology
Plan:
- Patient presented with migraine headache, however with symptoms also concerning for acute stroke. Stroke alert was called and patient received TNK in ER on 06/07.
- He reports he feels back to normal for the most part, with some mild residual weakness of right upper extremity
- Head CT was negative for acute stroke
- Neurology following, feels most likely complex migraine
- TTE with results as above, reviewed with patient 06/09/2025
- Given findings, would check DANIELLE to rule out PFO and further qualify abnormality noted on TTE
- Procedure reviewed with patient and he is agreeable to proceed. NPO. Added to DANIELLE schedule today
- Further recommendations based on DANIELLE findings
- Sinus rhythm/sinus bradycardia on review of telemetry. EKG sinus bradycardia with early repol
- Discussed with resident. Discussed with hospitalist and neurology via [facility] text
Data Reviewed
-
EKG: Tracing Personally Visualized and interpreted
CT Scan: Report Reviewed by me
Medical Tests (Nuc Med, Echo etc): Report Reviewed by me
Labs: Labs Reviewed by me
--- NOTE | 2025-06-09 11:06 | PTCARENOTE ---
patient in cathlab for DANIELLE
--- NOTE | 2025-06-09 12:44 | CM ---
Patient has been medically cleared for discharge to home with no additional skilled services. Patient has arranged for transport home with family.
--- NOTE | 2025-06-09 16:05 | W.PN.UPDATE ---
Update Note
Progress Note Update
Preliminary DANIELLE findings:
Normal left ventricular systolic function
No evidence of PFO, agitated saline bubble study negative
No significant valvular disease
No significant findings regarding trileaflet aortic valve. No echodensity appreciated in this study.
Reviewed with primary service.
Called family to review and mailbox was full no ability to leave a message. Discussed with primary service
--- NOTE | 2025-06-09 16:49 | W.DCSUMMARY ---
Documented by User: Fiorella Chavira MD, Resident 06/09/25 17:18
Discharge Summary
Discharge Data
Date of Admission: 06/07/25
Date of Discharge: 06/09/25
-
Pending Results: No
Additional Pending Results:
Blood culture results. Will contact patient with findings if abnormal.
Hospital Course
Discharging Physician : Dr. Dilip Medel
Disposition : Home
Primary care physician : Arthur Norris
Principal Discharge diagnosis : Hemiplegic migraine
Chronic Discharge diagnosis : Migraines, history of concussions, habitual marijuana use
Hospital Course : Patient is a 19-year-old male who presented to the emergency department after suffering from a severe headache at around 3 in the afternoon while at work. It was not a thunderclap type of headache but had a relatively sudden
onset. Pain was diffuse throughout the head but is most focused in the frontal lobe area. Pain was associated with nausea. By the time the patient reached the emergency department there was some weakness in the right arm and he felt somewhat
confused. He also stated that he had some balance issues with his right side being weaker than the left in the upper and lower extremity. He had sensation loss in the right upper and lower extremity with blurry vision. Sensation returned in his
lower extremity faster than in the upper extremity. His last migraine was around 2 years ago. He has had migraines since he was 8 years old and the episode that led to his presentation to the emergency department was different than any of his
other prior headaches. Stroke alert was called. Qc Analyst, neurology, and physiatry were consulted. [place] neurology recommended TNK. CT of the head was conducted in the emergency department which was unremarkable with an aspect score of 10
indicating no visible ischemic changes. Patient received TNK in the emergency department. 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 Brain CT was unremarkable. Patient was admitted to the
ICU for neurological deficits.
The patient was given supportive care while in the ICU and neurology and psychiatry were consulted. A brain MRI showed no acute evidence of infarct or intracranial hemorrhage. 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
Though this hypoplasia was detected it is not likely associated with the patient's migraine symptoms and hemiplegia. An echocardiogram conducted showed a mobile linear echodensity seen in the ventricular side of the aortic valve. This finding
warranted further investigation with a transesophageal echocardiogram. DANIELLE was unremarkable. With IV fluid support and supportive care the patient's symptoms resolved and the patient returned back to his baseline. The patient believes that he is
ready for discharge and would like to be discharged.
The patient has reached maximal benefit from this hospital admission and the patient is appropriate for discharge at the present time. There are no barriers that would impede the patient from being discharged from the hospital at the present time.
The patient should follow-up with their primary care provider within 1 week following discharge. The patient should follow-up with neurology within 1 to 2 weeks following discharge. The patient should follow-up with pulmonology 2 to 4 weeks after
discharge. It is recommended that the patient establish himself with a psychiatric provider considering psychiatric family history.
Important imaging findings :
- Chest x-ray conducted on 06/07/2025:
No radiographic evidence for cardiopulmonary disease.
- Head CT conducted on 06/07/2025:
No CT evidence for acute intracranial hemorrhage or transcortical infarct.
ASPECT score: 10
- Head/neck CT angio conducted on 06/07/2025:
NECK CTA:
1. 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
2. No CTA evidence for stenosis, occlusion, or dissection in the internal carotid arteries or left vertebral artery.
3. Mild enlargement of the adenoid and lingual tonsils.
HEAD CTA:
1. No CTA evidence for acute intracranial hemorrhage or transcortical infarct.
2. No CTA evidence for large vessel arterial stenosis or occlusion in the anterior circulation.
3. 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
4. Patent bilateral posterior communicating arteries.
- Brain CT conducted on 06/07/2025:
CBF <30% Volume: 0 mL (estimate of ischemic core)
Tmax >6 second Volume: 0 mL (critically hypoperfused tissue)
CBF/Tmax Mismatch Volume: 0 mL (ischemic penumbra)
CBF/Tmax Mismatch Ratio: None
Hypoperfusion Index (Tmax >10s/Tmax >6s): N/A (predicts rate of collateral flow, infarct growth, and clinical outcome)
CBV Index (rCBV in Tmax >6s): -
CBF <20% Volume: 0 mL (for patient's who arrived to the hospital within 60 minutes of symptom onset)
- Hand x-ray conducted on 06/07/2025:
No radiographic evidence for acute fracture or arthritis in the right hand.
- Echocardiogram conducted on 06/08/2025:
Left Ventricle: Normal left ventricular size, wall thickness and systolic function. No regional wall motion abnormalities are seen. LV ejection fraction is 55-60% by visual assessment. Normal diastolic function.
Right Ventricle: Normal right ventricular size and function.
Left Atrium: Mildly dilated left atrium.
Right Atrium: Normal right atrium.
Mitral Valve: Mitral valve opens normally. Trace mitral regurgitation.
Aortic Valve: Trileaflet aortic valve. Aortic valve opens normally. No aortic regurgitation is seen. Mobile linear echodensity seen on the ventricular side of aortic valve.
Tricuspid Valve: Tricuspid valve opens normally. Trace tricuspid regurgitation. Estimated pulmonary artery pressure of 28 mmHg. Assuming a right atrial pressure of 3 mmHg.
Pulmonic Valve: Pulmonic valve opens normally. Trace pulmonic regurgitation.
Pericardium\\Pleura: Normal pericardium without effusion.
Aorta: Normal aortic root.
Other Findings: The IVC is of normal size and demonstrates normal respiratory variation. Interatrial septum is intact with no evidence of shunting by color flow Doppler.
- Brain MRI conducted on 06/08/2025:
1. No MRI evidence for acute infarct or intracranial hemorrhage.
2. 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
3. Mild enlargement of the adenoid and palatine tonsils.
- Transesophageal echocardiogram conducted on 06/09/2025:
Normal left ventricular systolic function
No evidence of PFO, agitated saline bubble study negative
No significant valvular disease
No significant findings regarding trileaflet aortic valve. No echodensity appreciated in this study.
Procedure findings :
Discharge Plan
-
Patient Disposition: Home (Routine Discharge)
Discharge Diagnosis/Procedures: Hemiplegic Migraine
Condition: Good
Diet: No restrictions
Activity: No restrictions
Driving Restrictions: As prior to admission
Blood Work: TSH and T4, CBC, BMP, HbA1c, and Morning cortisol in the outpatient setting with PCP
Referrals:
Amee Kenney NP [Specified Professional Personl, Pulmonary Medicine] - in four to six weeks
Referral Note: rec sleep study and rx for insomnia
follow up in sleep clinic
Felix Meadows MD [Active, Neurology] - in two weeks
Arthur Norris MD [Family Provider, Family Practice] - in less than 1 week
Prescriptions:
No Action
No Current Medications
0
Discharge Orders:
Discharge Patient (As Directed); Ordered 06/09/25
Ordered By: Fiorella Chavira
Discharge Date and Time
Discharge Date/Time: 06/09/25 14:15
Print Language: PAKISTANI

Documented by User: Dilip Medel DO 06/09/25 17:34
Discharge Summary
Discharge Data
Date of Admission: 06/07/25
Date of Discharge: 06/09/25
Total time spent discharging patient (in min): 32
Discharge Plan
-
Patient Disposition: Home (Routine Discharge)
Discharge Diagnosis/Procedures: Hemiplegic Migraine
Condition: Good
Diet: No restrictions
Activity: No restrictions
Driving Restrictions: As prior to admission
Blood Work: TSH and T4, CBC, BMP, HbA1c, and Morning cortisol in the outpatient setting with PCP
Referrals:
Amee Kenney NP [Specified Professional Personl, Pulmonary Medicine] - in four to six weeks
Referral Note: rec sleep study and rx for insomnia
follow up in sleep clinic
Felix Meadows MD [Active, Neurology] - in two weeks
Arthur Norris MD [Family Provider, Family Practice] - in less than 1 week
Prescriptions:
No Action
No Current Medications
0
Discharge Orders:
Discharge Patient (As Directed); Ordered 06/09/25
Ordered By: Fiorella Chavira
Discharge Date and Time
Discharge Date/Time: 06/09/25 14:15
Print Language: PAKIST[place]
== END 2025-06-09 14:15 | disposition home or self-care (01) | DRG 103 ==
LOC: ICU 18:51
PROVIDERS: Nurse Practitioner Family; Student in an Organized Health Care Education/Training Program; ADMITTING PHYSICIAN Internal Medicine; ATTENDING PHYSICIAN Internal Medicine; CONSULT PHYSICIAN Internal Medicine Critical Care Medicine; CONSULT PHYSICIAN Psychiatry & Neurology Neurology; EMERGENCY PHYSICIAN Emergency Medicine; FAMILY PHYSICIAN Family Medicine; OTHER PHYSICIAN Nuclear Medicine Nuclear Cardiology; OTHER PHYSICIAN Psychiatry & Neurology Psychiatry
PROC: 3E03317 Introduction of Other Thrombolytic into Peripheral Vein, Percutaneous Approach (ICD-10-PCS; 2025-06-07)
PROC: B24BZZ4 Ultrasonography of Heart with Aorta, Transesophageal (ICD-10-PCS; 2025-06-09)
DX: G43.409 Hemiplegic migraine, not intractable, without status migrainosus (principal); Q28.1 Other malformations of precerebral vessels; G43.109 Migraine with aura, not intractable, without status migrainosus; F12.90 Cannabis use, unspecified, uncomplicated; F90.9 Attention-deficit hyperactivity disorder, unspecified type; F41.9 Anxiety disorder, unspecified; F43.20 Adjustment disorder, unspecified; R00.1 Bradycardia, unspecified; G47.00 Insomnia, unspecified; R94.39 Abnormal result of other cardiovascular function study; F17.290 Nicotine dependence, other tobacco product, uncomplicated; Z87.820 Personal history of traumatic brain injury
CPT/HCPCS: 0042T; 70450; 70496; 70498; 70551; 71045; 73120; 80048; 80053; 80061; 81003; 82962; 83036; 83735; 84100; 84484; 85025; 85027; 85610; 85652; 85730; 86850; 86900; 86901; 87040; 92523; 93005; 93306; 93312; 93320; 93325; 96374; 96375; 99291; J3101; Q9967